=== PATIENT | male | born 1980 | race Caucasian/White ===

== ENCOUNTER 2016-11-22 14:45 | Emergency (ER) | payer OTHER ==
[~2016-11-22] VITALS: Ht 177.8 cm; Wt 95.4 kg
[~2016-11-22 14:45] MED LIST: ALBUTEROL17 GM IH; AMOXICILLIN875 MG PO; BACTRIM,SEPT1 TABLET PO; MOTRIN600 MG PO; NOHOMEMEDS; NORCO 5/3251 TABLET PO; PEN-VEE K,VEET500 MG PO; PERCOCET 5/31 TABLET PO; PERCOCET 7.51 TABLET PO
[2016-11-22 15:22] LABS: HEMATOCRIT 50.7 % (38.0-50.0); MCH 27.8 PG (29.0-34.0); MCHC 32.7 G/DL (30.0-36.0); MCV 84.9 FL (86-99); MEAN PLAT.VOLUME 9.6 uM^3 (9.0-12.4); PLATELET COUNT 341 K/uL (156-360); RBC DIS.WIDTH-CV 13.3 % (11.8-14.6); RBC DIS.WIDTH-SD 41.1 % (39-53); RED BLOOD COUNT 5.97 M/uL (4.00-5.50); WHITE BLOOD COUNT 12.7 K/uL (4.1-10.2)
[2016-11-22 15:33] LABS: CHLORIDE 91 mEq/L (99-109); POTASSIUM 3.5 mEq/L (3.7-5.4); SODIUM 140 mEq/L (136-147)
[2016-11-22 15:35] LABS: GLUCOSE 121 mg/dL (70-99)
[2016-11-22 15:37] LABS: ANION GAP 15 MEQ/L (2-14); TOTAL BILIRUBIN 0.7 mg/dL (0.0-1.0)
[2016-11-22 15:39] LABS: ALKALINE PHOSPHATASE 81 IU/L (3-129); GFR ESTIMATE (CALCULATED) > 59 mL/min/
[2016-11-22 15:40] LABS: UREA NITROGEN (BUN) 17 mg/dL (9-23)
[2016-11-22 15:43] LABS: LIPASE 27 U/L (1.0-51.0)
[2016-11-22 17:43] LABS: ADD MIUA? NO; BILIRUBIN NEGATIVE; BLOOD NEGATIVE; COLOR YELLOW ((YELLOW)); GLUCOSE (STRIP) NEGATIVE; KETONES NEGATIVE; LEUKOCYTES NEGATIVE; NITRITE NEGATIVE; PROTEIN (STRIP) NEGATIVE; SPECIFIC GRAVITY 1.021 (1.000-1.030); UCUL ADDED? NO
[2016-11-22] MEDS ORDERED: ZOFRAN4 MG PO (20:16)
[2016-11-22 20:31] VITALS: BP 142/78
== END 2016-11-22 20:31 | disposition home or self-care (01) ==
LOC: EME 14:45
DX: R11.2 Nausea with vomiting, unspecified (principal); F12.288 Cannabis dependence with other cannabis-induced disorder; F17.200 Nicotine dependence, unspecified, uncomplicated; J45.909 Unspecified asthma, uncomplicated; Z83.3 Family history of diabetes mellitus; F11.21 Opioid dependence, in remission
CPT/HCPCS: 71020; 80053; 81003; 83690; 85027; 87502; 87651 90; 99281; 99284; J1885; J2405; J7030

== ENCOUNTER 2017-02-15 05:05 | Emergency (ER) | payer OTHER ==
[~2017-02-15] VITALS: Ht 177.8 cm; Wt 101.2 kg
[~2017-02-15 05:05] MED LIST changes: +ZOFRAN4 MG PO
[2017-02-15] MEDS ORDERED: NAPROXEN500 MG PO (06:00)
[2017-02-15 06:19] VITALS: BP 121/60
== END 2017-02-15 06:21 | disposition home or self-care (01) ==
LOC: EME 05:05
DX: S20.211A Contusion of right front wall of thorax, initial encounter (principal); F17.200 Nicotine dependence, unspecified, uncomplicated; W18.30XA Fall on same level, unspecified, initial encounter
CPT/HCPCS: 71020; 93005; 99281; 99284; J1885

== ENCOUNTER 2017-05-21 19:51 | Emergency (ER) | payer OTHER ==
[~2017-05-21] VITALS: Ht 180.3 cm; Wt 94.1 kg
[~2017-05-21 19:51] MED LIST changes: +NAPROXEN500 MG PO
[2017-05-21] MEDS ORDERED: PERCOCET 5/31 TABLET PO (23:02)
[2017-05-21] MEDS ORDERED: VALIUM5 MG PO (23:02)
[2017-05-21 23:33] VITALS: BP 125/97
== END 2017-05-21 23:33 | disposition home or self-care (01) ==
LOC: EXP 19:51 → EME 19:51 → EXP 23:33
DX: M54.5 Low back pain (principal); M62.830 Muscle spasm of back; F17.200 Nicotine dependence, unspecified, uncomplicated; Z86.718 Personal history of other venous thrombosis and embolism
CPT/HCPCS: 99281; 99283; J2270

== ENCOUNTER 2017-11-25 16:52 | Emergency (ER) | payer OTHER ==
[~2017-11-25] VITALS: Ht 177.8 cm; Wt 82.0 kg
[~2017-11-25 16:52] MED LIST changes: +VALIUM5 MG PO
[2017-11-25] MEDS ORDERED: KEFLEX500 MG PO (21:45)
[2017-11-25] MEDS ORDERED: PERCOCET 5/31 TABLET PO (21:50)
[2017-11-25 22:31] VITALS: BP 113/76
== END 2017-11-25 22:32 | disposition home or self-care (01) ==
LOC: EME 16:52
DX: S02.81XA Fracture of other specified skull and facial bones, right side, initial encounter for closed fracture (principal); S05.8X1A Other injuries of right eye and orbit, initial encounter; S02.5XXA Fracture of tooth (traumatic), initial encounter for closed fracture; W22.8XXA Striking against or struck by other objects, initial encounter; Y92.810 Car as the place of occurrence of the external cause; F17.200 Nicotine dependence, unspecified, uncomplicated
CPT/HCPCS: 70486; 99281; 99284